=== PATIENT | female | born 1985 | race American Indian/Alaskan Native ===

== ENCOUNTER 2020-09-10 08:10 | Emergency (ER) | payer MEDICAID ==
--- NOTE | 2020-09-10 08:29 | Event Note ---
ED Screening Note Date of service: 09/10/20 Time: 08:28 ED Screening Note: Patient complains of left lower abdominal pain now radiating to her left flank area x3 days Admits to urinary frequency Denies hematuria or history of kidney stones Patient states she also states she believes she may have an STD due to infidelity of her partner Denies vaginal discharge This initial assessment/diagnostic orders/clinical plan/treatment(s) is/are subject to change based on patients health status, clinical progression and re- assessment by fellow clinical providers in the ED. Further treatment and workup at subsequent clinical providers discretion. Patient/guardian urged not to elope from the ED as their condition may be serious if not clinically assessed and managed. Initial orders include: Labs
[2020-09-10 09:20] LABS: Bacteria,Urine 2+ /HPF (Negative); Bilirubin,Urine NEG (Negative); Blood,Urine SM (Negative); Color,Urine Yellow (Yellow); Mucus,Urine FEW /HPF; Urobilinogen,Urine < 2.0 mg/dL (<2.0)
[2020-09-10 09:31] LABS: Basophils # (Auto) 0.1 K/mm3 (0.0-0.1); Basophils % (Auto) 0.6 % (0.0-1.8); Eosinophils % (Auto) 0.3 % (0.0-4.3); Hematocrit 35.9 % (30.3-42.9); Hemoglobin 11.8 gm/dl (10.1-14.3); Lymphocytes # (Auto) 1.6 K/mm3 (1.2-5.4); Lymphocytes % (Auto) 12.5 % (13.4-35.0); Mean Corpuscular HGB Conc 33 % (30-34); Mean Corpuscular Volume 86 fl (79-97); Monocytes # (Auto) 0.9 K/mm3 (0.0-0.8); Platelet Count 476 K/mm3 (140-440); Red Blood Count 4.17 M/mm3 (3.65-5.03); Red Cell Distribution Width 13.5 % (13.2-15.2)
[2020-09-10 09:35] LABS: WBC,Urine > 182.0 /HPF (0.0-6.0)
[2020-09-10 09:47] LABS: Alanine Aminotransferase 10 units/L (7-56); Albumin 3.4 g/dL (3.9-5); BUN/Creatinine Ratio 9; Blood Urea Nitrogen 8 mg/dL (7-17); Hemolysis Index 4
[2020-09-10] MEDS ORDERED: SODIUM CHLORIDE 0.9% 1000 ML 1,000 ML IV ONE (12:58)
[2020-09-10] MEDS ORDERED: KETOROLAC 30 MG/1 ML INJ IV ONE (12:58)
[2020-09-10] MEDS ORDERED: cefTRIAXone/NS 1 GM/50 ML 1 GM/50 ML BAG IV ONE ×2 (12:59→14:01)
[2020-09-10] MEDS ORDERED: levoFLOXacin 500 MG TAB PO ONE (13:18)
[2020-09-10] MEDS ORDERED: HYDROcodone/ACETAMINOPHEN 5-325 MG TAB PO ONE (13:18)
--- NOTE | 2020-09-10 13:48 | Emergency Department Report ---
ED Abdominal Pain HPI - General Chief Complaint: Abdominal Pain Stated Complaint: LEFT FLANK PAIN Time Seen by Provider: 09/10/20 08:27 Source: patient Mode of arrival: Ambulatory Limitations: No Limitations - History of Present Illness Initial Comments: 35-year-old female presents to ED with left flank pain x3 days. Patient reports pain initially started in the lower abdomen radiates to the left flank area. She reports associated subjective fever, chills, urinary frequency, nausea. She denies any hematuria. Patient states she tried drinking cranberry juice without relief. MD Complaint: flank pain -: days(s) (3) Location: L flank Severity: moderate Severity scale (0 -10): 10 Quality: aching Consistency: constant Improves With: nothing Worsens With: movement Associated Symptoms: nausea, fever, chills. denies: vomiting, diarrhea, hematuria - Related Data Previous Rx's Medication Instructions Recorded Last Taken Type HYDROcodone/APAP 5-325 [[place] 1 each PO Q6HR PRN #10 tablet 09/10/20 Unknown Rx 5/325] Naproxen [Naprosyn] 500 mg PO BID #20 tablet 09/10/20 Unknown Rx Nitrofurantoin [place]/M-Cryst 100 mg PO Q12HR 7 Days #14 capsule 09/10/20 Unknown Rx [Macrobid CAP] Allergies Allergy/AdvReac Type Severity Reaction Status Date / Time tramadol Allergy Shortness Verified 09/10/20 08:28 of Breath ED Review of Systems ROS: Stated complaint: LEFT FLANK PAIN Other details as noted in HPI Comment: All other systems reviewed and negative Constitutional: chills, fever Gastrointestinal: nausea. denies: vomiting Genitourinary: frequency. denies: hematuria Musculoskeletal: back pain ED Past Medical Hx - Past Medical History Additional medical history: PROLONGED QT - Surgical History Additional Surgical History: C SECT - Social History Smoking Status: Current Every Day Smoker Substance Use Type: None - Medications Home Medications: Home Medications Medication Instructions Recorded Confirmed Last Taken Type HYDROcodone/APAP 5-325 [[place] 1 each PO Q6HR PRN #10 tablet 09/10/20 Unknown Rx 5/325] Naproxen [Naprosyn] 500 mg PO BID #20 tablet 09/10/20 Unknown Rx Nitrofurantoin [place]/M-Cryst 100 mg PO Q12HR 7 Days #14 capsule 09/10/20 Unknown Rx [Macrobid CAP] ED Physical Exam - General Limitations: No Limitations General appearance: alert, in no apparent distress - Head Head exam: Present: atraumatic, normocephalic - Eye Eye exam: Present: normal appearance, EOMI - ENT ENT exam: Present: mucous membranes moist - Neck Neck exam: Present: normal inspection - Respiratory Respiratory exam: Present: normal lung sounds bilaterally. Absent: respiratory distress - Cardiovascular Cardiovascular Exam: Present: normal rhythm, tachycardia - GI/Abdominal GI/Abdominal exam: Present: soft. Absent: distended, tenderness - Extremities Exam Extremities exam: Present: normal inspection - Back Exam Back exam: Present: CVA tenderness (L) - Neurological Exam Neurological exam: Present: alert, oriented X3 - Psychiatric Psychiatric exam: Present: normal affect, normal mood - Skin Skin exam: Present: warm, dry, intact, normal color ED Course Vital Signs 09/10/20 09/10/20 09/10/20 08:23 13:11 13:24 Temperature 97.9 F 99.6 F Pulse Rate 136 H 120 H Respiratory 18 16 20 Rate Blood Pressure 128/76 Blood Pressure 113/64 [Left] O2 Sat by Pulse 98 100 Oximetry ED Medical Decision Making - Lab Data Result diagrams: 09/10/20 09:04 09/10/20 09:04 - Medical Decision Making Patient received 1 dose of Levaquin 500 mg p.o. here in the ED before I noticed that patient has history of prolonged QT. Will not give a prescription for Cipro due to this, even though patient states she has taken Cipro multiple times following this diagnosis. We will instead give 1 g of Rocephin and discharge home with a nonfluoroquinolone. Outpatient follow-up advised. Critical care attestation.: If time is entered above; I have spent that time in minutes in the direct care of this critically ill patient, excluding procedure time. ED Disposition Clinical Impression: Acute pyelonephritis Disposition: DC-01 TO HOME OR SELFCARE Is pt being admited?: No Condition: Stable Instructions: Pyelonephritis, Adult, [id number], Abdominal Pain (ED) Prescriptions: Nitrofurantoin [place]/M-Cryst [Macrobid CAP] 100 mg PO Q12HR 7 Days #14 capsule Naproxen [Naprosyn] 500 mg PO BID #20 tablet HYDROcodone/APAP 5-325 [[place] 5/325] 1 each PO Q6HR PRN #10 tablet PRN Reason: Pain Referrals: PRIMARY CARE, [Primary Care Provider] - 3-5 Days
[2020-09-10 14:02] VITALS: BP 123/84
== END 2020-09-10 14:21 | disposition home or self-care (01) ==
LOC: ED 08:10
DX: N10 Acute pyelonephritis (principal); F17.200 Nicotine dependence, unspecified, uncomplicated; Z98.890 Other specified postprocedural states; Z79.899 Other long term (current) drug therapy; Z88.8 Allergy status to other drugs, medicaments and biological substances
CPT/HCPCS: 36415; 80053; 81001; 83690; 84703; 85025; 96361; 96365; 96375; 99283; J0696; J1885; J7030